=== PATIENT | male | born 1960 | race Caucasian/White ===

== ENCOUNTER → 2019-05-07 | Outpatient (CLI) | payer OTHER | LOC: GMAE 14:21 | PROVIDERS: ATTEND Family Medicine | DX: Z00.00 Encounter for general adult medical examination without abnormal findings (principal) ==

== ENCOUNTER 2019-10-08 05:35 | Day surgery (SDC) | payer OTHER ==
[2019-10-08] MEDS ORDERED: LACTATED RINGERS 1,000 ML ONE (07:00)
[2019-10-08] MEDS ORDERED: PROPOFOL 200 MG/20 ML VIAL IV ONE (07:00)
[2019-10-08] MEDS ORDERED: LIDOCAINE 1% 10 ML VIAL INJ ONE (07:00)
--- NOTE | 2019-10-08 09:46 | OP ---
DATE OF PROCEDURE: 10/08/19 PREOPERATIVE DIAGNOSIS: 1. Screening colonoscopy. POSTOPERATIVE DIAGNOSIS: 1. Normal colon. PROCEDURE: 1. Colonoscopy. SURGEON: Michael Garza MD PROCEDURE: General anesthesia IV was induced in the lateral position. Once the patient was comfortable, digital rectal exam revealed a small internal thrombosed hemorrhoid. The colonoscope was entered without difficulty and passed all the way to the cecum with minimal resistance. The cecum was identified by the appendiceal orifice. The terminal ileum was not intubated. Upon careful withdrawal, no polyps were identified. There was an adequate prep and a good exam. Retroflexion in the rectum revealed the small thrombosed non- tumorous appearing internal hemorrhoid. Air was aspirated and the scope withdrawn. The patient tolerated the procedure and was awakened and taken to Recovery to be discharged. #[id number] cc: Claudy Sanders MD [facility] [place]
[2019-10-08 09:53] VITALS: BP 121/92; TEMP 97.2; O2SAT 97
== END 2019-10-08 09:10 | disposition home or self-care (01) ==
LOC: AMB 05:35
PROVIDERS: ATTEND Surgery
DX: Z12.11 Encounter for screening for malignant neoplasm of colon (principal); K64.8 Other hemorrhoids
CPT/HCPCS: 00812; 45378; J3490; J7120